=== PATIENT | male | born 1955 | race Caucasian/White ===

== ENCOUNTER 2019-10-29 08:28 | Outpatient (CLI) | payer OTHER, MEDICARE, SELFPAY ==
--- NOTE | ~2019-10-29 | MR_ITS ---
EXAMINATION: MR brain/brain stem wo/w con DATE: 10/29/2019 09:45 INDICATION: Ataxia. Bilateral leg weakness. TECHNIQUE: Magnetic resonance imaging (MRI) of the brain and brainstem was performed without and with 15 mL MultiHance intravenous contrast. Sequences included sagittal and axial T1-weighted FSE, axial diffusion-weighted FS EPI, axial T2*-weighted GRE, axial T2-weighted FLAIR Propeller, and axial T2-we ighted Propeller. Postcontrast sequences included axial and coronal T1-weighted FSE. Apparent diffusi on coefficient (ADC) maps were created. COMPARISON: Head CT 05/30/2011 FINDINGS: There is a punctate acute infarct in the left frontoparietal deep white matter. There is ch ronic encephalomalacia involving the left basal ganglia and left frontal lobe with old blood products . There is an old lacunar infarct in the kimani on the right. There are scattered areas of nonspecific increased T2-weighted signal intensity in the cerebral white matter. There is no abnormal mass lesio n. There is ex vacuo dilatation of body of left lateral ventricle. There is mild mucosal thickening i n the ethmoid sinuses. The orbits are normal. The mastoid air cells are normal. IMPRESSION: 1. Punctate acute infarct in the left frontoparietal deep white matter. 2. Chronic encephalomalacia involving the left basal ganglia and left frontal lobe with old blood pro ducts. 3. Old lacunar infarct in the kimani. 4. Moderate nonspecific cerebral white matter disease, which likely represents chronic small vessel i schemic disease. Reviewed, dictated and finalized at location A. IMPRESSION: 1. Punctate acute infarct in the left frontoparietal deep white matter. 2. Chronic encephalomalacia involving the left basal ganglia and left frontal l obe with old blood products. 3. Old lacunar infarct in the kimani. 4. Moderate nonspecific cerebral white matter disease, which likely represents chronic small vessel ischemic disease.
[2019-10-29 09:17] LABS: Estimated Glomerular Filt Rate > 60
== END 2019-10-29 08:29 | disposition home or self-care (01) ==
PROVIDERS: PCP Family Medicine; Visit Provider Family Medicine
DX: R27.0 Ataxia, unspecified (principal); R93.0 Abnormal findings on diagnostic imaging of skull and head, not elsewhere classified
CPT/HCPCS: 36415; 70553; A9577

== ENCOUNTER 2019-12-28 09:09 | Outpatient (CLI) | payer OTHER, MEDICARE, SELFPAY ==
--- NOTE | 2019-12-28 11:30 | NEURO_ITS ---
Patient Number: [id number] Impression: # Complains of imbalance/ataxia. # Normal nerve conduction study including motor and sensory nerves and F- waves. # Normal needle/EMG exam with no neurogenic changes noted. # Clinical correlation recommended. Nerve Conduction Studies Anti Sensory Summary Table Stim Site NR Peak (ms) P-T Amp (?V) Site1 Site2 Delta-P (ms) Dist (cm) Jero (m/s) Left Sup Fibular Anti Sensory (Ant Lat Mall) 14 cm 3.3 16.1 14 cm Ant Lat Mall 3.3 16.0 48 Right Sup Fibular Anti Sensory (Ant Lat Mall) 14 cm 3.5 4.5 14 cm Ant Lat Mall 3.5 16.0 46 Left Sural Anti Sensory (Lat Mall) Calf 3.7 16.5 Calf Lat Mall 3.7 16.0 43 Right Sural Anti Sensory (Lat Mall) Calf 4.0 9.3 Calf Lat Mall 4.0 16.0 40 Motor Summary Table Stim Site NR Onset (ms) O-P Amp (mV) Site1 Site2 Delta-0 (ms) Dist (cm) Jero (m/s) Left Peroneal Motor (Vastus Med) Ankle 5.2 1.3 Popit Ankle 10.7 35.0 33 Popit 15.9 0.7 B Fib Ankle 8.6 0.0 Right Peroneal Motor (Vastus Med) Ankle 5.0 3.3 Popit Ankle 9.0 37.0 41 Popit 14.0 1.8 Left Tibial Motor (Abd Coto Brev) Ankle 5.0 5.2 Knee Ankle 10.1 41.0 41 Knee 15.1 5.1 Right Tibial Motor (Abd Coto Brev) Ankle 4.5 8.8 Knee Ankle 10.2 43.0 42 Knee 14.7 5.3 F Wave Studies NR F-Lat (ms) L-R F-Lat (ms) Left Peroneal (Mrkrs) (EDB) 57.92 3.51 Right Peroneal (Mrkrs) (EDB) 54.42 3.51 Left Tibial (Mrkrs) (Abd Hallucis) 59.84 4.60 Right Tibial (Mrkrs) (Abd Hallucis) 55.24 4.60 EMG Side Muscle Nerve Root Ins Act Fibs Amp Dur Recrt Comment Right AntTibialis Dp Br Fibular L4-5 Nml Nml Nml Nml Nml Right Gastroc Tibial S1-2 Nml Nml Nml Nml Nml Right Fibularis Long Sup Br Fibular L5-S1 Nml Nml Nml Nml Nml Right Flex Dig Long Tibial L5-S2 Nml Nml Nml Nml Nml Right Ext Dig Brev Dp Br Fibular L5, S1 Nml Nml Nml Nml Nml Left AntTibialis Dp Br Fibular L4-5 Nml Nml Nml Nml Nml Left Gastroc Tibial S1-2 Nml Nml Nml Nml Nml Left Fibularis Long Sup Br Fibular L5-S1 Nml Nml Nml Nml Nml Left Flex Dig Long Tibial L5-S2 Nml Nml Nml Nml Nml Left Ext Dig Brev Dp Br Fibular L5, S1 Nml Nml Nml Nml Nml Right QuadratusFem QuadFemoris L4-5, S1 Nml Nml Nml Nml Nml Left QuadratusFem QuadFemoris L4-5, S1 Nml Nml Nml Nml Nml MTDD
== END 2019-12-28 09:10 | disposition home or self-care (01) ==
PROVIDERS: PCP Internal Medicine; Visit Provider Family Medicine
DX: R27.0 Ataxia, unspecified (principal)
CPT/HCPCS: 95886; 95910

== ENCOUNTER 2022-08-20 11:21 | Emergency (ER) | payer MEDICARE, SELFPAY ==
--- NOTE | ~2022-08-20 | XR_ITS ---
CORRECTED REPORT exam description change [facility] [place] 08/21/22 This report was recreated on 08/21/22. Original report was EXAMINATION: XR abdomen NG/Feed tube insert DATE: 08/20/2022 12:18 INDICATION: Gastrostomy tube replacement. TECHNIQUE: A supine view of the abdomen was obtained. COMPARISON: None. FINDINGS: There is a gastrostomy tube in expected position. There is contrast in the tube and in the stomach and proximal small bowel. No extraluminal contrast. There are gallstones in the gallbladder. There are no dilated loops of bowel. IMPRESSION: 1. Gastrostomy tube in expected position. 2. Cholelithiasis. Reviewed, dictated and finalized at location A. MTDD
[2022-08-20 11:33] VITALS: BP 103/66; PULSE 64; RESP 16; O2SAT 100
--- NOTE | 2022-08-20 12:04 | PC.NURSE ---
Kyleube 16f, 5ml replace by Dr. Daniels
--- NOTE | 2022-08-20 12:31 | ED.GENADULT ---
HPI - General Adult General Chief complaint: Unspecified Stated complaint: g-tube out Time Seen by Provider: 08/20/22 11:29 Source: patient Mode of arrival: EMS Limitations: no limitations History of Present Illness HPI narrative: 66-year-old with a history of CVA, malignant neoplasm of the tonsil, was sent in from a [facility] for dislodged G-tube happened last night. Patient has no complaints at this time. Onset (ago): day(s) (1) Related Data Allergies Allergy/AdvReac Type Severity Reaction Status Date / Time acetaminophen Allergy Unknown Verified 09/21/15 11:00 Penicillins Allergy Unknown ITCHING Verified 09/21/15 11:00 HYDROCODONE BIT Allergy Unknown Uncoded 09/21/15 11:00 Review of Systems Review of Systems: All systems reviewed & are unremarkable except as noted in HPI and below Constitutional: Constitutional: Reports no additional constitutional complaints Eyes: Eyes: Reports no additional eye complaints ENT: Reports system reviewed and no additional complaints, except as documented Cardiovascular: Cardiovascular: Reports no additional cardiovascular complaints Respiratory: Respiratory: Reports no additional respiratory complaints Gastrointestinal: Gastrointestinal: Reports as per HPI Musculoskeletal: Musculoskeletal: Reports no additional musculoskeletal complaints Exam Narrative: GENERAL: Well-appearing, well-nourished, and in no acute distress. HEAD: Normocephalic, atraumatic. EYES: PERRLA and EOMI. NECK: Supple. CHEST: Clear to auscultation. No respiratory distress. HEART: Regular rate and rhythm. No murmur heard. Normal peripheral pulses. ABDOMEN: Soft, Orozco catheter in gastrostomy site EXTREMITIES: Normal range of motion. No edema. SKIN: Warm, dry, no rash. NEURO: No focal deficits. Alert and oriented x3. PSYCH: Normal mood and affect. Course Course Emergency Course: G-tube #16 was replaced. Gastrografin study was done which showed tube in place. Vital Signs Vital signs: Vital Signs Pulse Rate 64 08/20/22 11:33 Respiratory Rate 08/20/22 11:33 Blood Pressure 103/66 08/20/22 11:33 Pulse Oximetry 100 08/20/22 11:33 Oxygen Delivery Room Air 08/20/22 11:33 Pulse Rate 64 08/20/22 11:33 Respiratory Rate 16 08/20/22 11:33 Blood Pressure 103/66 08/20/22 11:33 Pulse Oximetry 100 08/20/22 11:33 Oxygen Delivery Room Air 08/20/22 11:33 Medical Decision Making Vital Signs Vital Signs: Vital Signs Pulse Rate 64 08/20/22 11:33 Respiratory Rate 16 08/20/22 11:33 Blood Pressure 103/66 08/20/22 11:33 Pulse Oximetry 100 08/20/22 11:33 Oxygen Delivery Room Air 08/20/22 11:33 Pulse Rate 64 08/20/22 11:33 Respiratory Rate 16 08/20/22 11:33 Blood Pressure 103/66 08/20/22 11:33 Pulse Oximetry 100 08/20/22 11:33 Oxygen Delivery Room Air 08/20/22 11:33 Imaging Data Radiologist's impression: ITS Impressions Contrast Injection Evaluation 08/20/22 12:21 IMPRESSION: 1. Gastrostomy tube in expected position. 2. Cholelithiasis. Discharge Plan Discharge Clinical Impression: Dislodged gastrostomy tube Patient Disposition: NH Senior Living/Asst Living Condition: Stable Instructions: Antibiotic Form, PEG (Percutaneous Endoscopic Gastrostomy) Tube Insertion (DC) Additional Instructions: Continue home medication, follow-up with your oncologist as scheduled. Follow-up/Referrals: PHYSICIAN NOT ON STAFF,NONSTAFF [Primary Care Provider] -
[2022-08-20 12:37] VITALS: BP 107/74; PULSE 62; RESP 16; TEMP 36.8; O2SAT 100
[2022-08-20 13:28] VITALS: BP 106/74; PULSE 62; RESP 16; TEMP 36.7; O2SAT 100
== END 2022-08-20 13:32 ==
PROVIDERS: Emergency Provider Family Medicine
DX: Z43.1 Encounter for attention to gastrostomy (principal); Z85.29 Personal history of malignant neoplasm of other respiratory and intrathoracic organs; Z86.73 Personal history of transient ischemic attack (TIA), and cerebral infarction without residual deficits; K80.20 Calculus of gallbladder without cholecystitis without obstruction
CPT/HCPCS: 43762; 49465; 99284

== ENCOUNTER 2022-08-20 21:20 | Emergency (ER) | payer MEDICARE, SELFPAY ==
--- NOTE | ~2022-08-20 | XR_ITS ---
CORRECTED REPORT exam description change [facility] [place] 08/21/22 This report was recreated on 08/21/22. Original report was EXAMINATION: XR abdomen NG/Feed tube insert INDICATION: Replaced G-tube TECHNIQUE: AP view of the abdomen is obtained. COMPARISON: 1212 hours FINDINGS: The G-tube is in the stomach. Contrast from earlier examination partially opacifies the large bowel. Contrast from current examination opacifies the stomach and proximal duodenum. The visualized lung bases are clear. IMPRESSION: 1. G-tube in the stomach. Reviewed, dictated and finalized at location F. MTDD IMPRESSION: 1. G-tube in the stomach.
[2022-08-20 21:24] VITALS: BP 102/89; PULSE 68; RESP 15; TEMP 36.4; O2SAT 100
[2022-08-20 21:27] VITALS: PULSE 66
--- NOTE | 2022-08-20 21:52 | ED.GENADULT ---
HPI - General Adult General Chief complaint: Unspecified <MELODY Sanchez Last Filed: 08/20/22 22:20> Stated complaint: DISLODGED G-TUBE <MELODY Sanchez Last Filed: 08/20/22 22:20> Time Seen by Provider: 08/20/22 21:22 <MELODY Sanchez Last Filed: 08/20/22 22:20> Source: patient and old records reviewed <MELODY Sanchez Last Filed: 08/20/22 22:20> Mode of arrival: EMS <MELODY Sanchez Last Filed: 08/20/22 22:20> Limitations: no limitations <MELODY Sanchez Last Filed: 08/20/22 22:20> History of Present Illness HPI narrative: Patient is a 66-year-old male, with a history of malignant neoplasm of the tonsil, who presents to the ED via EMS with report of dislodged G-tube. Patient reports his G-tube became dislodged again this afternoon. He is unsure how. He does not recall it being caught on anything or feeling a pulling sensation. This is the second time it has become dislodged today. It was replaced in the ED earlier today and correct placement was performed via XR. Records reviewed. Orozco catheter temporarily placed by snf prior to arrival. Patient denies any other concerns, denies abdominal pain, nausea, vomiting, fevers. <MELODY Sanchez Last Filed: 08/20/22 22:20> Related Data Allergies/adverse reactions: Allergies Allergy/AdvReac Type Severity Reaction Status Date / Time acetaminophen Allergy Unknown Verified 09/21/15 11:00 Penicillins Allergy Unknown ITCHING Verified 09/21/15 11:00 HYDROCODONE BIT Allergy Unknown Uncoded 09/21/15 11:00 <MELODY Sanchez Last Filed: 08/20/22 22:20> Review of Systems Review of Systems: CONSTITUTIONAL: Denies fever, chills, or sweats. GASTROINTESTINAL: See HPI. GENITOURINARY: Denies dysuria or hematuria. <Chikis Francisco PA-C - Last Filed: 08/20/22 22:20> All systems reviewed & are unremarkable except as noted in HPI and below <Chikis Francisco PA-C - Last Filed: 08/20/22 22:20> PMFSH Past Medical History Medical History: Medical History (Updated 08/21/22 @ 00:00 by Background Daemon) CVA (cerebral vascular accident) History of gastrostomy tube placement Tonsillar neoplasm <Chikis Francisco PA-C - Last Filed: 08/20/22 22:20> Exam Narrative: GENERAL: Well appearing, well-nourished, non-toxic, in no acute distress. HEAD: Normocephalic, atraumatic. NECK: Supple. No adenopathy, no masses. RESPIRATORY: Airway patent, respirations nonlabored. CARDIOVASCULAR: Regular rate and rhythm without murmurs, rubs, or gallops. Radial pulses 2+ and equal bilaterally. ABDOMINAL: Soft, no tenderness throughout abdomen, nondistended, no hepatosplenomegaly. Normoactive BS. G-tube stoma epigastric region, no surrounding erythema/induration/tenderness. MUSCULOSKELETAL: Moves all extremities. Strength/ROM intact without gross deformities. SKIN: Warm, dry, normal color. No rashes. NEURO: A&O X3. Speech clear. Cranial nerves II-XII grossly intact. Steady gait. No ataxic movements. PSYCHIATRIC: Appropriate mood and affect. Normal interaction. 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 I performed all aspects of the MDM as documented w/ the following additions: 58-year-old presenting for G-tube replacement. Sixteen Ukrainian was placed. Confirmed with x-ray. Woodward components of procedures performed under my supervision. All questions answered. Patient in agreement w/ disposition. <Norberto Garcia MD - Last Filed: 08/29/22 17:05> Vital Signs Vital signs: Vital Signs Temperature 97.6 F 08/20/22 21:24 Pulse Rate 68 08/20/22 21:24 Respiratory Rate 15 08/20/22 21:24 Blood Pressure 102/89 08/20/22 21:24 Pulse Oximetry 100 08/20/22 21:24 Oxygen Delivery Room Air 08/20/22 2
[2022-08-20 22:59] VITALS: BP 138/76; PULSE 62; RESP 13; O2SAT 97
[2022-08-20 23:06] VITALS: BP 131/75; PULSE 66; RESP 15; TEMP 36.6; O2SAT 98
== END 2022-08-20 23:13 ==
PROVIDERS: Emergency Provider Physician Assistant
DX: Z43.1 Encounter for attention to gastrostomy (principal); Z85.29 Personal history of malignant neoplasm of other respiratory and intrathoracic organs; Z86.73 Personal history of transient ischemic attack (TIA), and cerebral infarction without residual deficits
CPT/HCPCS: 43762; 49465; 99284

== ENCOUNTER 2022-09-01 09:13 | Outpatient (CLI) | payer MEDICARE, SELFPAY ==
--- NOTE | ~2022-09-01 | XR_ITS ---
MODIFIED ESOPHAGRAM HISTORY: Dysphagia. TECHNIQUE: Modified barium esophagram was performed on 09/01/2022. I administered fluoroscopy and perf ormed the exam with speech pathologist. Patient was seated for lateral fluoroscopic imaging for adela stion of thin liquids, pudding, solids and quantified amounts, followed by thin liquids in uncontroll ed amounts. This was recorded on tape. A single fluoroscopic spot image was also recorded. The DAP fo r this procedure was 2.528 Gycm2. The amount of fluoroscopy time used during this procedure was 4.3 m inutes. FINDINGS: Oral stage: Adequate function. Pharyngeal stage: There is thickening and decreased mobility of the epiglottis which may be related t o prior radiation treatment for reported throat cancer. There is reduced laryngeal elevation, tongue base retraction and pharyngeal squeeze. There is persistent residue along the pharyngeal wall at the vallecula and piriform sinuses. There is trace laryngeal penetration following the swallow with no ob served aspiration. Cervical/esophageal stage: Adequate function. IMPRESSION: Pharyngeal dysphagia with trace laryngeal penetration following the swallow but no aspira tion. Please correlate with speech pathologist findings and specific feeding recommendations. Reviewed, dictated and finalized at location A. IMPRESSION: Pharyngeal dysphagia with trace laryngeal penetration following the swallow but no aspiration. Please correlate with speech pathologist findings and specific feeding recommendations.
--- NOTE | 2022-09-01 15:19 | REHSTMBS ---
Assessment and note entered by Lynne Blackman, AMBULATORY ANALYST Modified Barium Swallow Evaluation Feeding Type Recommended Combined Oral/Non-Oral Food Consistency Pureed, Level 4 Liquid Consistency Mildly Thick (2) Treatment Recommendations Effortful Swallow,Laryngeal Elevation Exerc, Enriqueta Maneuver,Supraglottic Swallow,Tongue Base Exercise ST Clinical Summary MODIFIED BARIUM SWALLOW STUDY The patient seen for a Modified Barium Swallow study at the request of his physician. Patient initially stated that he did not know why he was having a swallowing evaluation as he felt he had no problems swallowing. Eventually, he admitted that he has tube feedings, and then again, through questioning, admitted that he had cancer in his throat (tonsils) and then again, through questioning admitted to chemo and radiation. He also was unable to state the name of his facility, [facility], in [place]. Patient was presented with small sips, only 2-3 cc of thin liquid, mildly thick liquid (nectar), and pudding mixed with semi-solid contrast medium. He exhibited spilling of material over the base of tongue into the valleculae which appeared more as a shelf than as a pocket, with material then spilling over the airway into the pyriform sinuses. There was one instance of penetration into the airway on pudding after the swallow from residue remaining around the level of the valleculae. Patient did not cough or clear independently. When asked to cough, this cleared some of the material but a trace amount remained throughout the evaluation. He was not noted to penetrate again, however on each presentation there was significant (mild to moderate) residue in both the valleculae and pyriform sinuses that he both could not feel, and could not fully clear placing him at risk for aspiration on all consistencies. Patient was given a 1/2 by 1/2 inch of kate cracker coated with the pudding mixture and he was able to smash and swallow but with no more efficiency than the other consistencies. Lastly he was presented with 1/2 teaspoon nectar/mildly thick liquid and the same results were noted, spill to valleculae and then pyriform sinuses, with some laryngeal elevation and epiglottal squeeze, and no
== END 2022-09-01 09:14 | disposition home or self-care (01) ==
PROVIDERS: PCP Internal Medicine; Visit Provider Internal Medicine
DX: R13.12 Dysphagia, oropharyngeal phase (principal)
CPT/HCPCS: 92611

== ENCOUNTER 2022-10-27 19:14 | Observation (INO) | payer MEDICARE, MEDICAID, SELFPAY ==
--- NOTE | ~2022-10-27 | XR_ITS ---
MODIFIED ESOPHAGRAM HISTORY: Dysphagia. TECHNIQUE: Modified barium esophagram was performed on 10/28/2022. I administered fluoroscopy and perf ormed the exam with speech pathologist. Patient was seated for lateral fluoroscopic imaging for adela stion of thin liquids, pudding, solids and quantified amounts, followed by thin liquids in uncontroll ed amounts. This was recorded on tape. A single fluoroscopic spot image was also recorded. The DAP fo r this procedure was 3.647 Gycm2. The amount of fluoroscopy time used during this procedure was 4.7 m inutes. FINDINGS: Oral stage: Reduced lingual movement with excessive oral transit time. Pharyngeal stage: Reduced laryngeal elevation, tongue base retraction and pharyngeal squeeze. This re sults in residue at the vallecula, piriform sinuses and pharyngeal wall. Recurrent episodes of laryng eal penetration without aspiration which elicited a cough reflex with effective clearance. Cervical/esophageal stage: Adequate function. IMPRESSION: Oral and pharyngeal dysphagia including laryngeal penetration but without aspiration. Pl ease correlate with speech pathologist findings and specific feeding recommendations. Reviewed, dictated and finalized at location A. IMPRESSION: Oral and pharyngeal dysphagia including laryngeal penetration but w ithout aspiration. Please correlate with speech pathologist findings and speci fic feeding recommendations.
[2022-10-27 19:18] VITALS: BP 125/92; PULSE 80; RESP 17; TEMP 36.7; O2SAT 100
--- NOTE | 2022-10-27 21:22 | ED.GENADULT ---
HPI - General Adult General Chief complaint: Unspecified Stated complaint: PULLED OUT GTUBE Time Seen by Provider: 10/27/22 21:00 History of Present Illness HPI narrative: This is a 66-year-old male presenting ED with a dislodged G-tube. Patient states a nurse accidentally pulled out earlier today. This happened multiple times in the past. Patient has no other complaints. Patient's G-tube is for throat cancer. Related Data Allergies Allergy/AdvReac Type Severity Reaction Status Date / Time acetaminophen Allergy Unknown Verified 09/21/15 11:00 Penicillins Allergy Unknown ITCHING Verified 09/21/15 11:00 HYDROCODONE BIT Allergy Unknown Uncoded 09/21/15 11:00 [facility] Past Medical History Medical History CVA (cerebral vascular accident) History of gastrostomy tube placement Tonsillar neoplasm Exam Narrative: APPEARANCE: No apparent distress. Head: atraumatic. EYES: EOMI, NOSE: Atraumatic NECK: Trachea midline RESPIRATORY: No increased rate of breathing CARDIOVASCULAR: RRR, ABDOMINAL: Soft nontender no guarding or rebound. G-tube site is present with mild bleeding. MUSCULOSKELETAl: No obvious deformities NEURO: Alert. Moving 4/4 extremities SKIN:: Warm, dry. Normal color PSYCHIATRIC: Normal affect Course Vital Signs Vital signs: Vital Signs Temperature 98.1 F 10/27/22 19:18 Pulse Rate 80 10/27/22 19:18 Respiratory Rate 17 10/27/22 19:18 Blood Pressure 125/92 H 10/27/22 19:18 Pulse Oximetry 100 10/27/22 19:18 Oxygen Delivery Room Air 10/27/22 19:18 Temperature 98.1 F 10/27/22 19:18 Pulse Rate 80 10/27/22 19:18 Respiratory Rate 17 10/27/22 19:18 Blood Pressure 125/92 H 10/27/22 19:18 Pulse Oximetry 100 10/27/22 19:18 Oxygen Delivery Room Air 10/27/22 19:18 Medical Decision Making [facility] Narrative Medical decision making narrative: -Presentation: 66-year-old male presenting with a dislodged G-tube. I was unable to replace the G-tube. Patient will be admitted to have a placed by surgical specialty. -DDX includes but is not limited to: Dislodged G-tube, close fistula -Co-morbidities complicating care: CVA, Throat neoplasm -Social determinants of health: disabled due to CVA and throat cancer -External Chart Review: review of previous ER visits -Independent interpretation of studies: Laboratory studies pending time of admission. -Discussion of Management/Consultants: Justin - Hospitalist, Consult placed in EMR to Dr. Lambert. -Procedures: Unsuccessful G-tube placement -Shared decision making / Disposition: patient be admitted for G-tube placement. Vital Signs Vital Signs: Vital Signs Temperature 98.1 F 10/27/22 19:18 Pulse Rate 80 10/27/22 19:18 Respiratory Rate 17 10/27/22 19:18 Blood Pressure 125/92 H 10/27/22 19:18 Pulse Oximetry 100 10/27/22 19:18 Oxygen Delivery Room Air 10/27/22 19:18 Temperature 98.1 F 10/27/22 19:18 Pulse Rate 80 10/27/22 19:18 Respiratory Rate 17 10/27/22 19:18 Blood Pressure 125/92 H 10/27/22 19:18 Pulse Oximetry 100 10/27/22 19:18 Oxygen Delivery Room Air 10/27/22 19:18 Discharge Plan Discharge Clinical Impression: CVA (cerebral vascular accident), History of throat cancer, Gastrostomy tube dysfunction Patient Disposition: Home, Self-Care Condition: Stable Instructions: Antibiotic Form Follow-up/Referrals: Brian,MD Luis [Primary Care Provider] -
[2022-10-27 22:41] VITALS: BP 132/74; O2SAT 100
[2022-10-27 22:41] LABS: Basophils Percent Auto 0.7 % (0.2-1.2); Eosinophils Absolute Auto 0.1 K/mm3 (0-0.3); Eosinophils Percent Auto 3.1 % (0-4.4); Hemoglobin 13.6 g/dL (14.0-18.0); Immature Granulocyte Absolute 0.01 K/mm3 (0.00-0.031); Immature Granulocyte Percent A 0.2 % (0-0.5); Lymphocytes Absolute Auto 0.55 K/mm3 (0.9-3.2); Lymphocytes Percent Auto 12.2 % (18.3-44.2); Mean Corpuscular HGB Conc 33.2 g/dl (32-36); Mean Corpuscular Hemoglobin 32.1 pg (26-34); Mean Corpuscular Volume 96.7 fl (80-100); Mean Platelet Volume 9.2 fl (7.4-10.4); Monocytes Absolute Auto 0.5 K/mm3 (0.1-0.6); Monocytes Percent Auto 11.3 % (2.6-8.5); Neutrophils Absolute Auto 3.3 K/mm3 (1.3-6.7); Neutrophils Percent Auto 72.5 % (45.5-73.1); Platelet Count Result 234 k/mm3 (150-375); Red Blood Count 4.24 M/mm3 (4.6-6.20); Red Cell Distribution Width 11.4 % (11.5-14.5); White Blood Count 4.5 K/mm3 (4.5-10.0)
[2022-10-27 22:50] LABS: Anion Gap 2 mmol/L (8-16); Blood Urea Nitrogen 16 mg/dL (9-20); Calcium 9.1 mg/dL (8.4-10.2); Carbon Dioxide 30 mmol/L (22-30); Chloride 100 mmol/L (98-107); Estimated Glomerular Filt Rate > 60; Glucose 80 mg/dL (65-110); Sodium 132 mmol/L (137-145)
--- NOTE | 2022-10-27 22:50 | ED.GENADULT ---
HPI - General Adult General Chief complaint: Unspecified Stated complaint: PULLED OUT GTUBE Time Seen by Provider: 10/27/22 21:00 Related Data Allergies Allergy/AdvReac Type Severity Reaction Status Date / Time acetaminophen Allergy Unknown Verified 09/21/15 11:00 Penicillins Allergy Unknown ITCHING Verified 09/21/15 11:00 HYDROCODONE BIT Allergy Unknown Uncoded 09/21/15 11:00 COUNT INCLUDES THE [facility] Past Medical History Medical History CVA (cerebral vascular accident) History of gastrostomy tube placement Tonsillar neoplasm Course Vital Signs Vital signs: Vital Signs Temperature 98.1 F 10/27/22 19:18 Pulse Rate 80 10/27/22 19:18 Respiratory Rate 17 10/27/22 19:18 Blood Pressure 125/92 H 10/27/22 19:18 Pulse Oximetry 100 10/27/22 19:18 Oxygen Delivery Room Air 10/27/22 19:18 Temperature 98.1 F 10/27/22 19:18 Pulse Rate 80 10/27/22 19:18 Respiratory Rate 17 10/27/22 19:18 Blood Pressure 125/92 H 10/27/22 19:18 Pulse Oximetry 100 10/27/22 19:18 Oxygen Delivery Room Air 10/27/22 19:18 Medical Decision Making Vital Signs Vital Signs: Vital Signs Temperature 98.1 F 10/27/22 19:18 Pulse Rate 80 10/27/22 19:18 Respiratory Rate 17 10/27/22 19:18 Blood Pressure 125/92 H 10/27/22 19:18 Pulse Oximetry 100 10/27/22 19:18 Oxygen Delivery Room Air 10/27/22 19:18 Temperature 98.1 F 10/27/22 19:18 Pulse Rate 80 10/27/22 19:18 Respiratory Rate 17 10/27/22 19:18 Blood Pressure 125/92 H 10/27/22 19:18 Pulse Oximetry 100 10/27/22 19:18 Oxygen Delivery Room Air 10/27/22 19:18 Lab Data 10/27/22 22:27 10/27/22 22:27 Labs: Lab Results 10/27/22 Range/Units 22:27 WBC 4.5 (4.5-10.0) K/mm3 RBC 4.24 L (4.6-6.20) M/mm3 Hgb 13.6 L (14.0-18.0) g/dL Hct 41.0 L (42.0-52.0) % MCV 96.7 (80-100) fl MCH 32.1 (26-34) pg MCHC 33.2 (32-36) g/dl RDW 11.4 L (11.5-14.5) % Plt Count 234 (150-375) k/mm3 MPV 9.2 (7.4-10.4) fl Immature Gran % (Auto) 0.2 (0-0.5) % Neut % (Auto) 72.5 (45.5-73.1) % Lymph % (Auto) 12.2 L (18.3-44.2) % [place] % (Auto) 11.3 H (2.6-8.5) % Eos % (Auto) 3.1 (0-4.4) % Baso % (Auto) 0.7 (0.2-1.2) % Lymph # (Auto) 0.55 L (0.9-3.2) K/mm3 [place] # (Auto) 0.5 (0.1-0.6) K/mm3 Eos # (Auto) 0.1 (0-0.3) K/mm3 Baso # (Auto) 0.0 (0.0-0.1) K/mm3 Abs Immat Gran (auto) 0.01 (0.00-0.031) K/mm3 Absolute Neuts (auto) 3.3 (1.3-6.7) K/mm3 Absolute Nucleated RBC 0.0 (0.0-0.012) K/mm3 Nucleated RBC % 0.0 (0.0-0.2) % PT Pending INR Pending APTT Pending Sodium Pending Potassium Pending Chloride Pending Carbon Dioxide Pending Anion Gap Pending BUN Pending Creatinine Pending Estim Creat Clear Calc Pending Estimated GFR Pending Glucose Pending Calcium Pending Discharge Plan Discharge Clinical Impression: CVA (cerebral vascular accident), History of throat cancer, Gastrostomy tube dysfunction Patient Disposition: Home, Self-Care Condition: Stable Instructions: Antibiotic Form Follow-up/Referrals: Brian,MD Luis [Primary Care Provider] -
[2022-10-27 22:51] LABS: Prothrombin Time 13.9 Seconds (11.1-14.7)
[2022-10-27 22:52] LABS: Partial Thromboplastin Time 27.5 SECONDS (22.3-36.8)
[2022-10-27 23:01] VITALS: BP 139/82; O2SAT 100
[2022-10-27 23:20] VITALS: BMI 21.4
[2022-10-27 23:39] VITALS: BP 128/71; PULSE 61; RESP 17; TEMP 36.4; O2SAT 100; BMI 21.4
--- NOTE | 2022-10-28 01:13 | ADMGEN ---
This patient, Mukesh Vogt, was admitted to 3 [facility] Surg Room 315-01 at 2326. Patient/family oriented to hospital policies and general routines including ID bracelet, bed and alarms, visiting hours, pain management, procedures, bathroom and other care routines, personal items, smoking policy, room service/diet, and visiting hours. Information on how to activate the Rapid Response Team has been discussed. Patient/Family are encouraged to report perceived risks to care and to ask questions if they do not understand what they are told or what they should do.
--- NOTE | 2022-10-28 03:32 | PM.IMHP ---
H&P: HPI History of Present Illness Date/Time: 10/28/22 03:32 Chief Complaint: dislodged PEG tube Narrative: This is a 66-year-old male with past medical history significant for head and neck cancer, throat cancer patient has a PEG tube but is currently also per oral patient has total adentia, on a modified diet and thickened liquids, mechanical soft diet. Patient was brought to the emergency room for evaluation. Review of Systems Review of Systems: Peg tube dislodgement Constitutional: Constitutional: Denies chills, Denies fatigue, Denies fever(s) and Denies malaise Eyes: Eyes: Denies change in vision ENT: Denies dysphagia, Denies vertigo, Denies dizziness and Denies odynophagia Cardiovascular: Cardiovascular: Denies chest pain Respiratory: Respiratory: Denies chest congestion and Denies cough Gastrointestinal: Gastrointestinal: Denies abdominal pain, Denies dyspepsia, Denies heartburn, Denies nausea and Denies vomiting Genitourinary: Genitourinary: Denies dysuria Musculoskeletal: Musculoskeletal: Denies myalgias Integumentary/Breasts: Skin/Breast: Denies rash Neurologic: Denies focal weakness and Denies Sensory deficit (Neuro) Psychiatric: Psychiatric: Reports no additional psychiatric complaints and Reports as per HPI Endocrine: Endocrine: Denies cold intolerance, Denies fatigue, Denies flushing, Denies heat intolerance, Denies polyphagia and Denies palpitations Hematologic/Lymphatic: Hematologic/Lymphatic: Reports no additional hematologic/lymphatic complaints and Reports as per HPI Allergic/Immunologic: Allergic/Immunologic: Reports no additional allergic/immunologic complaints and Reports as per HPI PMF Past Medical History Medical History CVA (cerebral vascular accident) History of gastrostomy tube placement Tonsillar neoplasm Social History Social History Smoking status: Never smoker Alcohol intake: never Substance use: never Lack of Transportation: No Lack of Food: Never True Current Housing: I Have Housing Concerned About Future Housing: No Difficulty Paying Gas/Electric Bills: No Difficulty Paying for Meds: No Currently Unemployed: No Education: High School Diploma/GED Difficulty w/ Childcare or Family Care: No Spiritual care concerns: No Meds Home Medications and Allergies Home Medications Medication Instructions Recorded Confirmed Type acetaminophen 500 mg tablet 500 mg PO Q6H PRN Pain 10/28/22 10/28/22 History aspirin 81 mg chewable tablet 81 mg PO DAILY prevent blood clots 10/28/22 10/28/22 History baclofen 10 mg tablet 10 mg feeding tube TID muscle 10/28/22 10/28/22 History spasms bisacodyl 10 mg rectal suppository 10 mg RECTAL DAILY PRN Constipation 10/28/22 10/28/22 History carbidopa 25 mg-levodopa 100 mg 25 - 100 tablet feeding tube BID 10/28/22 10/28/22 History tablet cyanocobalamin (vitamin B-12) 1,000 mcg feeding tube DAILY 10/28/22 10/28/22 History 1,000 mcg tablet donepezil 10 mg tablet 10 mg feeding tube HS dementia 10/28/22 10/28/22 History famotidine 20 mg tablet 20 mg feeding tube DAILY heart burn 10/28/22 10/28/22 History magnesium citrate (Citroma oral 300 ml PO DAILY PRN Constipation 10/28/22 10/28/22 History solution) magnesium hydroxide 400 mg/5 mL 30 mg PO DAILY PRN Constipation 10/28/22 10/28/22 History oral suspension (Milk of Magnesia) prochlorperazine maleate 10 mg 10 mg feeding tube Q6H PRN N/V 10/28/22 10/28/22 History tablet Allergies Allergy/AdvReac Type Severity Reaction Status Date / Time acetaminophen Allergy Unknown Verified 09/21/15 11:00 Penicillins Allergy Unknown ITCHING Verified 09/21/15 11:00 HYDROCODONE BIT Allergy Unknown Uncoded 09/21/15 11:00 Vital Signs Vital Signs - 24 hr 10/27/22 19:18 10/27/22 22:41 10/27/22 23:01 Temperature 98.1 F Pulse Rate 80 Re
[2022-10-28 05:43] VITALS: BP 118/70; PULSE 55; RESP 14; TEMP 36.1; O2SAT 98
[2022-10-28] MEDS: DEXTROSE 5%/0.45% SOD CHL 1,000 ML 65 ML IV CONT ×2 (05:59→22:08)
--- NOTE | 2022-10-28 07:53 | PM.IMPN ---
Progress Note: A&P Assessment and Plan (1) Gastrostomy tube dysfunction: Code(s): K94.23 - Gastrostomy malfunction Status: Acute Assessment and Plan: -admit to regular medical floor - GI consult for PEG tube replacement - keep NPO - D5 half-normal saline at 65 cc an hour - patient is able to have oral he has been on mechanical soft with thickened liquids diet - noted patient is edentulous -Barium swallow scheduled for today 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 on a modified diet and thickened liquids, mechanical soft diet.? Patient was brought to the emergency room for evaluation. 10/28: Patient seen this morning and is comfortable resting in bed. He is scheduled for a barium swallow at noon. He understands that if he does not pass the barium swallow then he will need G-tube replacement. He is hoping to not have to have the tube replaced. He says that he has been receiving continuous feeds at the [facility] with supplemental PO intake. GI was consulted and their recommendations are appreciated. Patient has also been seeing PT/OT/ST at the [facility]. Will consult speech today and if patient remains in the hospital tomorrow, will consult other therapies. He denies any complaints. Review of Systems Review of Systems: All systems reviewed & are unremarkable except as noted in HPI and below Exam Narrative: General: thin, chronically ill appearing 66-year-old male, laying in bed, comfortable, NARD Neuro: awake, alert and oriented x4, speech clear, no focal neuro deficits noted. Some delays with word finding. HEENMT: normocephalic, atraumatic, EOMI, sclerae anicteric, moist oral mucosa Respiratory: Clear to auscultation bilaterally without crackles, rhonchi or wheezes, nonlabored breathing Cardio: regular rate, regular rhythm with S1-S2 Abdomen: nondistended, normoactive bowel sounds, soft, nontender to palpation, small opening to RQ from G-tube with gauze. Extremities: no edema, erythema, or tenderness to palpation, DP pulses 2+ bilaterally Skin: no rashes or lesions, warm and dry, skin darkening to neck and upper chest from radiation. Psych: appropriate mood and affect, judgment and insight intact Objective Data Vital Signs Vital Signs: Vital Signs - 24 hr 10/27/22 19:18 10/27/22 22:41 10/27/22 23:01 Temperature 98.1 F Pulse Rate 80 Respiratory Rate 17 Blood Pressure 125/92 H 132/74 139/82 Pulse Oximetry 100 100 100 Oxygen Delivery Room Air 10/27/22 23:39 10/28/22 00:00 10/28/22 05:43 Temperature 97.6 F 96.9 F L Pulse Rate 61 55 L Respiratory Rate 17 14 Blood Pressure 128/71 118/70 Pulse Oximetry 100 98 Oxygen Delivery Room Air Meds/Results Medications: Active Medications Generic Name Dose Route Start Last Admin Trade Name Freq PRN Reason Stop Dose Admin Acetaminophen 1,000 mg 10/28/22 03:54 Acetaminophen 500 Mg Tablet PO Q6H PRN Pain Rated 1-3 Aspirin 81 mg 10/28/22 09:00 Aspirin 81 Mg Chewable Tablet PO DAILY [facility] Baclofen 10 mg 10/28/22 09:00 Baclofen
--- NOTE | 2022-10-28 07:56 | WPDGICN ---
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 These records are not available for review. Plan to repeat modified barium swallow to assess safety of swallowing. If necessary repeat EGD and PEG tube placement may be required. Given no records repeat evaluation appears necessary at present. (2) History of gastrostomy tube placement: Status: Acute Assessment and Plan: Patient had previous PEG tube that has become dislodged and will need to be replaced if he cannot eat adequately. Because he is eating we will repeat modified barium swallow at this time. (3) CVA (cerebral vascular accident): Code(s): I63.9 - Cerebral infarction, unspecified Status: Acute Assessment and Plan: Patient gives a prior history of a CVA but this appears to have improved and returned to baseline. GI Consult Note Consult date/time: 10/28/22 07:57 Reason for consult: G-tube pulled out HPI: Mukesh Vogt is a 66 year old male I am asked to see because G-tube was pulled out. Patient currently resident of a residential in [place]. Patient is a poor historian. He reports he had a distant history of a CVA. Apparently also had a carcinoma of the head and neck. 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 Patient cannot remember when the PEG tube was placed but apparently was placed in [place]. He can not remember how long ago it was placed. He apparently has had it replaced several times in August of this year. When it became dislodged. When it was dislodged yesterday he was sent to the emergency room but was unable to replace. 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 Patient did have a modified barium swallow performed as an outpatient. He has recently been allowed to have oral intake supplemented with a G-tube. Currently he exhibits good speech. He is unable to give any specifics as to the duration and location of previous PEG tube placement. Patient denies any abdominal pain. Review of Systems Review of Systems: Review of systems noncontributory. [facility] Past Medical History Medical History CVA (cerebral vascular accident) History of gastrostomy tube placement Tonsillar neoplasm Social History Social History Smoking status: Never smoker Alcohol intake: never Substance use: never Lack of Transportation: No Lack of Food: Never True Current Housing: I Have Housing Concerned About Future Housing: No Difficulty Paying Gas/Electric Bills: No Difficulty Paying for Meds: No Currently Unemployed: No Education: High School Diploma/GED Difficulty w/ Childcare or Family Care: No Spiritual care concerns: No Meds Home Medications and Allergies Home Medications Medication Instructions Recorded Confirmed Type acetaminophen 500 mg tablet 500 mg PO Q6H PRN Pain 10/28/22 10/28/22 History aspirin 81 mg chewable tablet 81 mg PO DAILY prevent blood clots 10/28/22 10/28/22 History baclofen 10 mg tablet 10 mg feeding tube TID muscle 10/28/22 10/28/22 History spasms bisacodyl 10 mg rectal suppository 10 mg RECTAL DAILY PRN Constipation 10/28/22 10/28/22 History carbidopa 25 mg-levodopa 100 mg 25 - 100 tablet feeding tube BID 10/28/22 10/28/22 History tablet cyanocobalamin (vitamin B-12) 1,000 mcg feeding tube DAILY 10/28/22 10/28/22 History 1,000 mcg tablet donepezil 10 mg tablet 10 mg feeding tube HS dementia 10/28/22 10/28/22 History famotidine 20 mg tablet 20 mg feeding tube DAILY heart burn 10/28/22 10/28/22 History magnesium citrate (Citroma oral 300 ml
[2022-10-28 08:00] VITALS: O2SAT 98
--- NOTE | 2022-10-28 13:14 | PCSTNOTE ---
Please refer to the Modified Barium Swallow Evaluation in the EMR.
--- NOTE | 2022-10-28 13:22 | PCSTNOTE ---
Modified Barium Swallow study completed. See Swallowing Precautions Recommendations.
[2022-10-28 14:00] VITALS: BP 124/78; PULSE 59; RESP 14; TEMP 36.6; O2SAT 99
[2022-10-28] MEDS: FAMOTIDINE 20 MG TABLET FEED TUBE (14:36)
[2022-10-28] MEDS: BACLOFEN 10 MG TABLET FEED TUBE ×2 (14:36→21:03)
[2022-10-28] MEDS: ASPIRIN 81 MG CHEWABLE TABLET PO (14:36)
[2022-10-28] MEDS: CYANOCOBALAMIN 1,000 MCG TABLET 1000 MCG FEED TUBE (14:36)
[2022-10-28] MEDS: CARBIDOPA/LEVODOPA 25/100 MG TABLET 1 TABLET FEED TUBE ×2 (14:37→21:03)
[2022-10-28] MEDS: DONEPEZIL HCL 10 MG TABLET FEED TUBE (21:03)
[2022-10-28 22:00] VITALS: BP 128/76; PULSE 56; RESP 16; TEMP 36.5; O2SAT 100
[2022-10-29 05:46] VITALS: BP 121/81; PULSE 62; RESP 18; TEMP 36; O2SAT 100
[2022-10-29 06:19] LABS: Basophils Percent Auto 0.7 % (0.2-1.2); Eosinophils Absolute Auto 0.2 K/mm3 (0-0.3); Hematocrit 41.7 % (42.0-52.0); Hemoglobin 13.8 g/dL (14.0-18.0); Immature Granulocyte Absolute 0.01 K/mm3 (0.00-0.031); Immature Granulocyte Percent A 0.2 % (0-0.5); Lymphocytes Percent Auto 9.4 % (18.3-44.2); Mean Corpuscular HGB Conc 33.1 g/dl (32-36); Mean Corpuscular Hemoglobin 31.7 pg (26-34); Mean Corpuscular Volume 95.9 fl (80-100); Mean Platelet Volume 9.1 fl (7.4-10.4); Monocytes Absolute Auto 0.5 K/mm3 (0.1-0.6); Monocytes Percent Auto 11.6 % (2.6-8.5); Neutrophils Absolute Auto 3.1 K/mm3 (1.3-6.7); Neutrophils Percent Auto 74.1 % (45.5-73.1); Platelet Count Result 213 k/mm3 (150-375); Red Blood Count 4.35 M/mm3 (4.6-6.20); Red Cell Distribution Width 11.2 % (11.5-14.5); White Blood Count 4.2 K/mm3 (4.5-10.0)
[2022-10-29 06:42] LABS: Alanine Aminotransferase 9 U/L (6-50); Albumin Level 3.7 g/dL (3.5-5.1); Alkaline Phosphatase 50 U/L (38-126); Anion Gap 1 mmol/L (8-16); Aspartate Amino Transferase 23 U/L (17-59); Bilirubin,Total 0.6 mg/dL (0.2-1.3); Blood Urea Nitrogen 8 mg/dL (9-20); Calcium 8.9 mg/dL (8.4-10.2); Carbon Dioxide 30 mmol/L (22-30); Chloride 98 mmol/L (98-107); Estimated CRCL calculation 76 ml/min; Estimated Glomerular Filt Rate > 60; Glucose 103 mg/dL (65-110); Potassium 4.1 mmol/L (3.4-5.0); Sodium 129 mmol/L (137-145)
--- NOTE | 2022-10-29 07:07 | PM.IMPN ---
Progress Note: A&P Assessment and Plan (1) Gastrostomy tube dysfunction: Code(s): K94.23 - Gastrostomy malfunction Status: Acute Assessment and Plan: -admit to regular medical floor - GI consult for PEG tube replacement - keep NPO -NS at 75 ml - patient is able to have oral he has been on mechanical soft with thickened liquids diet - noted patient is edentulous -Barium swallow completed as well as speech therapy formal evaluation. Speech is recommending replacement of the feeding tube as there is concern that the patient will not be able to take in enough liquid and calories to achieve his daily needs. 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 - Neoplasm of unspecified behavior of digestive system Status: Acute Assessment and Plan: status post surgery follow-up in outpatient setting (4) CVA (cerebral vascular accident): Qualifiers: CVA mechanism: unspecified Qualified Code(s): I63.9 - Cerebral infarction, unspecified Code(s): I63.9 - Cerebral infarction, unspecified Status: Acute Assessment and Plan: no dysphagia patient currently on per oral as well PT/OT/ST at custod[facility] Subjective Date/time seen: 10/29/22 07:07 Interval history: This is a 66-year-old male with past medical history significant for head and neck cancer, throat cancer patient has a PEG tube but is currently also per oral patient has total adentia,? on a modified diet and thickened liquids, mechanical soft diet.? Patient was brought to the emergency room for evaluation. 10/28: Patient seen this morning and is comfortable resting in bed. He is scheduled for a barium swallow at noon. He understands that if he does not pass the barium swallow then he will need G-tube replacement. He is hoping to not have to have the tube replaced. He says that he has been receiving continuous feeds at the custodial with supplemental PO intake. GI was consulted and their recommendations are appreciated. Patient has also been seeing PT/OT/ST at the custodial. Will consult speech today and if patient remains in the hospital tomorrow, will consult other therapies. He denies any complaints. 10/30: Modified barium swallow completed yesterday in speech completed formal eval. They are recommending replacement of gastrostomy tube visit they were concerned he will not be able to maintain his caloric intake with p.o. alone. He is on the schedule to go with Dr. Hoffmann today for G-tube placement. He will be ready to discharge back to his facility after procedures completed. Exam Narrative: General: thin, chronically ill appearing 66-year-old male, laying in bed, comfortable, NARD Neuro: awake, alert and oriented x4, speech clear, no focal neuro deficits noted. Some delays with word finding. HEENMT: normocephalic, atraumatic, EOMI, sclerae anicteric, moist oral mucosa Respiratory: Clear to auscultation bilaterally without crackles, rhonchi or wheezes, nonlabored breathing Cardio: regular rate, regular rhythm with S1-S2 Abdomen: nondistended, normoactive bowel sounds, soft, nontender to palpation, small opening to RQ from G-tube with gauze. Extremities: no edema, erythema, or tenderness to palpation, DP pulses 2+ bilaterally Skin: no rashes or lesions, warm and dry, skin darkening to neck and upper chest from radiation. Psych: appropriate mood and affect, judgment and insight intact Objective Data Vital Signs Vital Signs: Vital Signs - 24 hr 10/28/22 08:00 10/28/22 14:00 10/28/22 22:00 Temperature 97.9 F 97.7 F Pulse Rate 59 L 56 L Respiratory Rate 14 16 Blood Pressure 124/78 128/76 Pulse Oximetry 98 99 100 Oxygen Delivery Room Air 10/29/22 05:46 T
[2022-10-29 07:53] LABS: Prealbumin 22.8 mg/dL (17.6-36.0)
[2022-10-29] MEDS: SODIUM CHLORIDE 0.9% IV 1,000 ML 75 ML IV CONT (08:24)
--- NOTE | 2022-10-29 11:54 | PC.NURSE ---
patient transfer to GI Lab
[2022-10-29] MEDS: LACTATED RINGERS 1,000 ML 150 ML IV CONT (12:15)
[2022-10-29 12:18] VITALS: BP 122/62; PULSE 62; RESP 16; TEMP 36.5; O2SAT 100
--- NOTE | 2022-10-29 12:29 | WPDANESEPPF ---
Anes - Initial Pre Proc Eval Procedure: Operation Date: 10/29/22 12:00 Proposed Procedures p Esophagogastroduodenoscopy - Ambrosio Almeida MD s Percutaneous Endoscopic Gastrostomy - Ambrosio Almeida MD Date/Time: 10/29/22 12:29 Surgeon: Gunnar Anderson MD Pre Op Diagnosis: PULLED OUT GTUBE Patient Data Age: 66 Gender: M Height: 1.7 m Weight: 62 kg Last Vital Signs Temp 36.5 C 10/29/22 12:18 Pulse 62 10/29/22 12:18 Resp 16 10/29/22 12:18 BP 122/62 10/29/22 12:18 Pulse Ox 100 10/29/22 12:18 O2 Del Method Room Air 10/29/22 12:18 Allergies Allergy/AdvReac Type Severity Reaction Status Date / Time acetaminophen Allergy Unknown Unknown Verified 10/29/22 12:17 hydrocodone Allergy Unknown Unknown Verified 10/29/22 12:17 Penicillins Allergy Unknown ITCHING Verified 10/29/22 12:17 Home Medications Medication Instructions Recorded Confirmed Type acetaminophen 500 mg tablet 500 mg PO Q6H PRN Pain 10/28/22 10/28/22 History aspirin 81 mg chewable tablet 81 mg PO DAILY prevent blood clots 10/28/22 10/28/22 History baclofen 10 mg tablet 10 mg feeding tube TID muscle 10/28/22 10/28/22 History spasms bisacodyl 10 mg rectal suppository 10 mg RECTAL DAILY PRN Constipation 10/28/22 10/28/22 History carbidopa 25 mg-levodopa 100 mg 25 - 100 tablet feeding tube BID 10/28/22 10/28/22 History tablet cyanocobalamin (vitamin B-12) 1,000 mcg feeding tube DAILY 10/28/22 10/28/22 History 1,000 mcg tablet donepezil 10 mg tablet 10 mg feeding tube HS dementia 10/28/22 10/28/22 History famotidine 20 mg tablet 20 mg feeding tube DAILY heart burn 10/28/22 10/28/22 History magnesium citrate (Citroma oral 300 ml PO DAILY PRN Constipation 10/28/22 10/28/22 History solution) magnesium hydroxide 400 mg/5 mL 30 mg PO DAILY PRN Constipation 10/28/22 10/28/22 History oral suspension (Milk of Magnesia) prochlorperazine maleate 10 mg 10 mg feeding tube Q6H PRN N/V 10/28/22 10/28/22 History tablet Laboratory Tests 10/29/22 06:07 WBC 4.2 L K/mm3 (4.5-10.0) RBC 4.35 L M/mm3 (4.6-6.20) Hgb 13.8 L g/dL (14.0-18.0) Hct 41.7 L % (42.0-52.0) MCV 95.9 fl (80-100) MCH 31.7 pg (26-34) MCHC 33.1 g/dl (32-36) RDW 11.2 L % (11.5-14.5) Plt Count 213 k/mm3 (150-375) MPV 9.1 fl (7.4-10.4) Immature Gran % (Auto) 0.2 % (0-0.5) Neut % (Auto) 74.1 H % (45.5-73.1) Lymph % (Auto) 9.4 L % (18.3-44.2) [place] % (Auto) 11.6 H % (2.6-8.5) Eos % (Auto) 4.0 % (0-4.4) Baso % (Auto) 0.7 % (0.2-1.2) Lymph # (Auto) 0.40 L K/mm3 (0.9-3.2) [place] # (Auto) 0.5 K/mm3 (0.1-0.6) Eos # (Auto) 0.2 K/mm3 (0-0.3) Baso # (Auto) 0.0 K/mm3 (0.0-0.1) Abs Immat Gran (auto) 0.01 K/mm3 (0.00-0.031) Absolute Neuts (auto) 3.1 K/mm3 (1.3-6.7) Absolute Nucleated RBC 0.0 K/mm3 (0.0-0.012) Nucleated RBC % 0.0 % (0.0-0.2) Sodium 129 L mmol/L (137-145) Potassium 4.1 mmol/L (3.4-5.0) Chloride 98 mmol/L (98-107) Carbon Dioxide 30 mmol/L (22-30) Anion Gap 1 L mmol/L (8-16) BUN 8 L D mg/dL (9-20) Creatinine 0.70 mg/dL (0.7-1.3) Estim Creat Clear Calc 76 ml/min Estimated GFR > 60 (59 - ) Glucose 103 mg/dL (65-110) Calcium 8.9 mg/dL (8.4-10.2) Total Bilirubin 0.6 mg/dL (0.2-1.3) AST 23 U/L (17-59) ALT 9 U/L (6-50) Alkaline Phosphatase 50 U/L (38-126) Total Protein 7.0 g/dL (6.3-8.2) Albumin 3.7 g/dL (3.5-5.1) Prealbumin 22.8 mg/dL (17.6-36.0) Patient hx anesthesia problems: none Family hx anesthesia problems: none Results Review: All pre-operative results and documents have been reviewed as part of the pre-operative evaluation. [facility] Past Medical History Medical History CVA (cerebral vascular accident) History of gastrostomy tube placement T
[2022-10-29 12:57] VITALS: BP 114/74; PULSE 80; RESP 16; O2SAT 99
--- NOTE | 2022-10-29 13:03 | PM.DS ---
DS: Admitting Diagnosis Discharge Date October 31 2022 Admitting Diagnosis displaced G tube DS: Discharge Diagnosis Discharge Diagnosis (1) Gastrostomy tube dysfunction: Code(s): K94.23 - Gastrostomy malfunction Status: Acute Assessment and Plan: -admit to regular medical floor - GI consult for PEG tube replacement - keep NPO -NS at 75 ml - patient is able to have oral he has been on mechanical soft with thickened liquids diet - noted patient is edentulous -Barium swallow completed as well as speech therapy formal evaluation. Speech is recommending replacement of the feeding tube as there is concern that the patient will not be able to take in enough liquid and calories to achieve his daily needs. 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 - Neoplasm of unspecified behavior of digestive system Status: Acute Assessment and Plan: status post surgery follow-up in outpatient setting (4) CVA (cerebral vascular accident): Qualifiers: CVA mechanism: unspecified Qualified Code(s): I63.9 - Cerebral infarction, unspecified Code(s): I63.9 - Cerebral infarction, unspecified Status: Acute Assessment and Plan: no dysphagia patient currently on per oral as well PT[facility]OT[facility]ST at [facility] DS: Summary Hospital Course Hospital Course: Interval history: This is a 66-year-old male with past medical history significant for head and neck cancer, throat cancer patient has a PEG tube but is currently also per oral patient has total adentia,? on a modified diet and thickened liquids, mechanical soft diet.? Patient was brought to the emergency room for evaluation. 10/28: Patient seen this morning and is comfortable resting in bed. He is scheduled for a barium swallow at noon. He understands that if he does not pass the barium swallow then he will need G-tube replacement. He is hoping to not have to have the tube replaced. He says that he has been [facility] the [facility] with supplemental PO intake. GI was consulted and their recommendations are appreciated. Patient has also been seeing PT/OT/ST at the [facility]. Will consult speech today and if patient remains in the hospital tomorrow, will consult other therapies. He denies any complaints. 10/30:? Modified barium swallow completed yesterday in speech completed formal eval.? They are recommending replacement of gastrostomy tube visit they were concerned he will not be able to maintain his caloric intake with p.o. alone.? He is on the schedule to go with Dr. Hoffmann today for G-tube placement.? He will be ready to discharge back to his facility after procedures completed. Status at Discharge Cognitive/behavioral status at discharge: A&Ox4 Time Spent with Patient Time attestation: Total time spent providing and/or coordinating discharge services: 34 Exam Narrative: General: thin, chronically ill appearing 66-year-old male, laying in bed, comfortable, NARD Neuro: awake, alert and oriented x4, speech clear, no focal neuro deficits noted. Some delays with word finding. HEENMT: normocephalic, atraumatic, EOMI, sclerae anicteric, moist oral mucosa Respiratory: Clear to auscultation bilaterally without crackles, rhonchi or wheezes, nonlabored breathing Cardio: regular rate, regular rhythm with S1-S2 Abdomen: nondistended, normoactive bowel sounds, soft, nontender to palpation, small opening to RQ from G-tube with gauze. Extremities: no edema, erythema, or tenderness to palpation, DP pulses 2+ bilaterally Skin: no rashes or lesions, warm and dry, skin darkening to neck and upper chest from radiation. Psych: appropriate mood and affect, judgment and insight intact DS:
[2022-10-29 13:07] VITALS: BP 118/78; PULSE 72; RESP 14; O2SAT 100
[2022-10-29 13:17] VITALS: BP 125/77; PULSE 78; RESP 16; O2SAT 100
[2022-10-29 14:00] VITALS: BP 148/74; PULSE 72; RESP 16; TEMP 36.5; O2SAT 100
[2022-10-29] MEDS: BACLOFEN 10 MG TABLET FEED TUBE (15:00)
== END 2022-10-29 15:50 ==
LOC: ANHED 22:01 → ANH3MEDSUR 10-28 01:01
PROVIDERS: Internal Medicine Gastroenterology; Nurse Practitioner Acute Care; Admitting Provider Internal Medicine; Emergency Provider Emergency Medicine; PCP Internal Medicine; Visit Provider Student in an Organized Health Care Education/Training Program
PROC: 0DJ08ZZ Inspection of Upper Intestinal Tract, Via Natural or Artificial Opening Endoscopic (ICD-10-PCS; CPT 43235; principal; 2022-10-29 12:00)
PROC: 0DH63UZ Insertion of Feeding Device into Stomach, Percutaneous Approach (ICD-10-PCS; CPT 43246; 2022-10-29 12:00)
DX: K94.23 Gastrostomy malfunction (principal); Z85.819 Personal history of malignant neoplasm of unspecified site of lip, oral cavity, and pharynx; Z92.3 Personal history of irradiation; D49.0 Neoplasm of unspecified behavior of digestive system; I63.9 Cerebral infarction, unspecified; M62.838 Other muscle spasm; K59.00 Constipation, unspecified; R12 Heartburn; F03.90 Unspecified dementia, unspecified severity, without behavioral disturbance, psychotic disturbance, mood disturbance, and anxiety; R11.2 Nausea with vomiting, unspecified; Z79.1 Long term (current) use of non-steroidal anti-inflammatories (NSAID); Z79.82 Long term (current) use of aspirin; Z79.899 Other long term (current) drug therapy
CPT/HCPCS: 36415; 43246; 80048; 80053; 84134; 85025; 85610; 85730; 92611; 99285; A9270; G0378; J2704; J7030; J7120

== ENCOUNTER 2023-12-21 18:34 | Emergency (ER) | payer MEDICARE, SELFPAY ==
--- NOTE | ~2023-12-21 | XR_ITS ---
XR chest 2V Ordering provider: Chikis Francisco History: 68 years Male with . sudden altered mental status and weakness . Comparison: May 30, 2011 FINDINGS: MEDIASTINUM: The cardiac silhouette is not enlarged. LUNGS: No infiltrates, effusions or pneumothorax. Masses are seen in the left mid zone measuring 3.6 cm. A mass also seen in the right infrahilar area measuring 3.6 cm. OTHER: No free air under the diaphragm. IMPRESSION: Masses in the left mid zone and right infrahilar area most likely metastatic lesions. Primary mass ca nnot be excluded. Reviewed, dictated and finalized at location A. IMPRESSION: Masses in the left mid zone and right infrahilar area most likely metastatic le sions. Primary mass cannot be excluded.
--- NOTE | ~2023-12-21 | CT_ITS ---
CT brain wo con Ordering provider: Chikis Francisco PA-C History: 68 years Male with . ams . Comparison: May 30, 2011 Technique: CT of the head without contrast. Radiation reduction technique utilized.The dose-length product was 605.33 mGy-cm. FINDINGS: BRAIN PARENCHYMA AND CSF SPACES: Moderate leukoaraiosis and diffuse cortical atrophy. Moderate athero matous disease. Left frontal old infarct is noted. Old lacunar infarct in the kimani and left basal stephanie glia. No midline shift, mass effect or hemorrhage. The brain parenchyma and CSF spaces are otherwise anita l. VISUALIZED PARANASAL SINUSES: Bilateral ethmoid sinus disease. MASTOIDS: Well aerated. BONES: The bones appear intact. SOFT TISSUES: Visualized nasopharynx is normal. Superficial soft tissues are normal. IMPRESSION: No acute intracranial findings. Reviewed, dictated and finalized at location A.
[2023-12-21 18:37] VITALS: BP 123/75; PULSE 92; RESP 18; TEMP 36.8; O2SAT 98
--- NOTE | 2023-12-21 18:39 | ECG_ITS ---
Test Date: 2023-12-21 20:33:35 Measurements Intervals [place] Rate: 96 P: 50 MT: 153 QRS: 11 QRSD: 80 T: 48 QT: 313 QTc: 396 Interpretive Statements SINUS RHYTHM WITHIN NORMAL LIMITS No previous ECG available for comparison Electronically Signed On 12-22-2023 07:28:37 CDT by Gilbert Cruz M.D.
--- NOTE | 2023-12-21 18:41 | ED.AMS ---
HPI - Altered Mental Status General Chief Complaint: Altered Mental Status <Chikis Francisco PA-C - Last Filed: 12/21/23 18:42> Stated Complaint: confusion, weakness <MELODY Sanchez Last Filed: 12/21/23 18:42> Time Seen by Provider: 12/21/23 18:37 <MELODY Sanchez Last Filed: 12/21/23 18:42> Focused HPI: Patient is a 68-year-old male, past medical history of throat cancer, G-tube, dementia, who presents the ED via EMS with report of altered mental status. Patient is resident of [facility]. Per EMS report, patient is typically alert oriented times 2-3, but has been increasingly confused and altered per residential staff. They report he has had some ground level falls recently, which is abnormal for him. Patient denies any concerns. A&O x1 currently. GENERAL: Elderly, mildly disheveled appearing, and in no acute distress. HEAD: Normocephalic, atraumatic. CHEST: Clear to auscultation. ?No respiratory distress. HEART: Regular rate and rhythm.? NEURO: ?Alert and oriented x1, thinks he is at rehab and it is year 1969. Moves all extremities. Patient screened in triage and initial orders placed.? ?Additional care and disposition to be based upon?diagnostic testing and treatment. <Chikis Francisco PA-C - Last Filed: 12/21/23 18:42> Source: patient, EMS and old records reviewed <MELODY Sanchez Last Filed: 12/21/23 18:42> Mode of arrival: EMS <MELODY Sanchez Last Filed: 12/21/23 18:42> Limitations: dementia <MELODY Sanchez Last Filed: 12/21/23 18:42> History of Present Illness HPI narrative: patient is 5-year-old gentleman who presents emergency department with chief complaint of possible changes in mental status. Per the family the patient is normally confused reports that he had a ground level fall after he got out of the bed family reports that he really does not ambulate much reports that he has known masses in his lungs and is currently planning for biopsy at [facility] in the near future. Patient per the family is acting his normal self and has no complaints at this time <Alex Sumner MD - Last Filed: 12/21/23 23:47> Related Data Home Medications: Home Medications Medication Instructions Recorded Confirmed acetaminophen 500 mg tablet 500 mg PO Q6H PRN Pain 10/28/22 10/28/22 aspirin 81 mg chewable tablet 81 mg PO DAILY prevent blood clots 10/28/22 10/28/22 baclofen 10 mg tablet 10 mg feeding tube TID muscle 10/28/22 10/28/22 spasms bisacodyl 10 mg rectal suppository 10 mg RECTAL DAILY PRN Constipation 10/28/22 10/28/22 carbidopa 25 mg-levodopa 100 mg 25 - 100 tablet feeding tube BID 10/28/22 10/28/22 tablet cyanocobalamin (vitamin B-12) 1,000 mcg feeding tube DAILY 10/28/22 10/28/22 1,000 mcg tablet donepezil 10 mg tablet 10 mg feeding tube HS dementia 10/28/22 10/28/22 famotidine 20 mg tablet 20 mg feeding tube DAILY heart burn 10/28/22 10/28/22 magnesium citrate (Citroma oral 300 ml PO DAILY PRN Constipation 10/28/22 10/28/22 solution) magnesium hydroxide 400 mg/5 mL 30 mg PO DAILY PRN Constipation 10/28/22 10/28/22 oral suspension (Milk of Magnesia) prochlorperazine maleate 10 mg 10 mg feeding tube Q6H PRN N/V 10/28/22 10/28/22 tablet <Chikis Francisco PA-C - Last Filed: 12/21/23 18:42> Allergies/Adverse Reactions: Allergies Allergy/AdvReac Type Severity Reaction Status Date / Time acetaminophen Allergy Unknown Unknown Verified 10/29/22 12:17 hydrocodone Allergy Unknown Unknown Verified 10/29/22 12:17 Penicillins Allergy Unknown ITCHING Verified 10/29/22 12:17 <Chikis Francisco PA-C - Last Filed: 12/21/23 18:42> Review of Systems Review of Systems: A 10 system review of systems was completed on the patient and is negative except for what is stated in the HPI. Nursing and ancillary documentation was reviewed. <Alex Adams
[2023-12-21 18:53] LABS: Basophils Percent Auto 0.1 % (0.2-1.2); Eosinophils Percent Auto 0.2 % (0-4.4); Hemoglobin 13.4 g/dL (14.0-18.0); Immature Granulocyte Absolute 0.06 K/mm3 (0.00-0.031); Immature Granulocyte Percent A 0.4 % (0-0.5); Lymphocytes Percent Auto 2.7 % (18.3-44.2); Mean Corpuscular HGB Conc 32.7 g/dl (32-36); Mean Corpuscular Hemoglobin 30.7 pg (26-34); Mean Platelet Volume 8.9 fl (7.4-10.4); Monocytes Absolute Auto 0.9 K/mm3 (0.1-0.6); Neutrophils Absolute Auto 13.2 K/mm3 (1.3-6.7); Neutrophils Percent Auto 90.6 % (45.5-73.1); Platelet Count Result 228 k/mm3 (150-375); Red Blood Count 4.36 M/mm3 (4.6-6.20); Red Cell Distribution Width 12.4 % (11.5-14.5); White Blood Count 14.6 K/mm3 (4.5-10.0)
[2023-12-21 19:06] LABS: Alanine Aminotransferase 17 U/L (6-50); Albumin Level 4.2 g/dL (3.5-5.1); Alkaline Phosphatase 88 U/L (38-126); Anion Gap 6 mmol/L (4-12); Aspartate Amino Transferase 36 U/L (17-59); Bilirubin,Total 0.8 mg/dL (0.2-1.3); Blood Urea Nitrogen 17 mg/dL (9-20); Calcium 8.7 mg/dL (8.4-10.2); Carbon Dioxide 31 mmol/L (22-30); Chloride 98 mmol/L (98-107); Creatine Kinase 675 U/L (55-170); Estimated CRCL calculation 72 ml/min; Estimated Glomerular Filt Rate > 60; Glucose 103 mg/dL (65-110); Potassium 4.5 mmol/L (3.4-5.0); Sodium 135 mmol/L (137-145)
[2023-12-21 19:17] LABS: INR 1.2; Prothrombin Time 15.3 Seconds (11.1-14.7)
[2023-12-21 19:19] LABS: Partial Thromboplastin Time 30.9 Seconds (22.3-36.8)
[2023-12-21 20:35] VITALS: BP 118/60; PULSE 87; RESP 16; TEMP 37.5; O2SAT 98
[2023-12-21 23:23] LABS: Add Urine Microscopic? YES; Appearance Urine Cloudy (Clear); Bacteria Urine 4+ /hpf; Bilirubin Urine Negative (Negative); Blood Urine 2+ (Negative); Color Urine Dark Yellow (Yellow); Glucose Urine UA Negative (Negative); Ketones Urine 1+ mg/dL (Negative); Leukocyte Esterase Ur 3+ LEU/UL (Negative); Nitrate Urine Positive (Negative); Non Pathogenic Casts 0-2; Protein Urine 1+ mg/dL (Negative); Specific Grav Ur 1.023 (1.001-1.035); Squamous Epithelial Cell Urine None Seen /hpf (Few); WBC Urine >100 /hpf (0-3); pH Urine 6.5 (5.0-9.0)
[2023-12-21] MEDS: CEFDINIR 300 MG CAPSULE PO (23:59)
[2023-12-22] VITALS (36 sets, daily range): BP systolic 108–117; BP diastolic 68–76; PULSE 68–86; RESP 14–18; TEMP 36.4–36.6; O2SAT 95–100
--- NOTE | 2023-12-22 00:24 | PC.NURSE ---
rn attempted to contact [facility] to give report, but no answer or a voicemail.
== END 2023-12-22 08:26 ==
PROVIDERS: Physician Assistant; Emergency Provider Emergency Medicine; PCP Internal Medicine
DX: N39.0 Urinary tract infection, site not specified (principal); C14.0 Malignant neoplasm of pharynx, unspecified; F03.90 Unspecified dementia, unspecified severity, without behavioral disturbance, psychotic disturbance, mood disturbance, and anxiety; Z93.1 Gastrostomy status; Z86.73 Personal history of transient ischemic attack (TIA), and cerebral infarction without residual deficits; Z79.82 Long term (current) use of aspirin; Z79.899 Other long term (current) drug therapy; R91.8 Other nonspecific abnormal finding of lung field; W18.30XA Fall on same level, unspecified, initial encounter
CPT/HCPCS: 36415; 70450; 71046; 80053; 81001; 82550; 85025; 85610; 85730; 87077; 87086; 87186; 93005; 99284; A9270